=== PATIENT | female | born 1960 | race Two or more races ===

== ENCOUNTER 2021-03-28 07:18 | Emergency (ER) | payer OTHER ==
[~2021-03-28] VITALS: Ht 160 cm; Wt 104.3 kg
[2021-03-28] MEDS ORDERED: GLIPIZIDE XL10 MG PO (07:59)
[2021-03-28] MEDS ORDERED: COZAAR100 MG PO (07:59)
[2021-03-28] MEDS ORDERED: SYNTHROID150 MCG PO (08:01)
[2021-03-28] MEDS ORDERED: JANUMET XR 1001 EACH PO (08:01)
[2021-03-28] MEDS ORDERED: LANTUS SOL100 UNIT/1 SQ (08:02)
[2021-03-28] MEDS ORDERED: ATORVASTATIN CA20 MG PO (08:02)
== END 2021-03-28 12:30 ==
LOC: ER 07:18
DX: H60.8X1 Other otitis externa, right ear (principal)